=== PATIENT | male | born 1995 | race Caucasian/White ===

== ENCOUNTER 2022-08-01 02:26 | Emergency (ER) | payer BC ==
[2022-08-01] MEDS ORDERED: HYDROmorphone 1 MG/ML Syringe IM ONE (03:05)
[2022-08-01] MEDS ORDERED: Ketorolac 60 MG/2 ML SDV IM ONE (03:05)
[2022-08-01] MEDS ORDERED: Cyclobenzaprine 10 MG Tab PO ONE (03:05)
[2022-08-01 04:19] VITALS: BP 141/83; PULSE 80
== END 2022-08-01 04:15 | disposition home or self-care (01) ==
LOC: JD.ED 02:26
DX: M54.6 Pain in thoracic spine (principal); Z72.0 Tobacco use
CPT/HCPCS: 72072; 96372; 99283; A9270; J1170; J1885

== ENCOUNTER 2023-07-22 19:26 | Emergency (ER) | payer BC, OTHER ==
[2023-07-22] MEDS: Lidocaine 1% 10 ML MDV ONE (20:43)
[2023-07-22] MEDS: Lidocaine 1% with EPINEPHrine 1:100,000 20 ML MDV ONE (20:44)
[2023-07-22] MEDS: Diphtheria,Pertussis(Acell),Tetanus Vaccine 0.5 ML Syringe IM ONE (20:49)
[2023-07-22] MEDS: Lidocaine 1% with EPINEPHrine 1:100,000 10 ML MDV INJECT ONE (20:52)
[2023-07-22] MEDS: Lidocaine 1% with EPINEPHrine 1:100,000 20 ML MDV INJECT ONE (20:53)
[2023-07-22 20:57] VITALS: BP 151/89; PULSE 79
== END 2023-07-22 20:56 | disposition home or self-care (01) ==
LOC: JD.ED 19:26
DX: S61.412A Laceration without foreign body of left hand, initial encounter (principal); Z23 Encounter for immunization; W26.8XXA Contact with other sharp object(s), not elsewhere classified, initial encounter
CPT/HCPCS: 12001; 90471; 90715; 99282-25; J3490